=== PATIENT | male | born 1985 | race Hispanic/Latino ===

== ENCOUNTER 2017-09-19 08:36 | Outpatient (CLI) | payer BC ==
[2017-09-19 09:50] LABS: Hemoglobin 15.9 g/dL (14.0-18.0); Mean Corpuscular HGB CONC 34.6 g/dL (32.0-36.0); Mean Corpuscular Volume 95.3 fl (80.0-94.0); Mean Platelet Volume 7.9 fL (7.4-10.4); Platelet Count 241 thou/uL (130-400); RBC Distribution Width 11.4 % (11.5-14.5); Red Blood Cell (RBC) Count 4.83 mill/uL (4.70-6.10); White Blood Cell (WBC) Count 5.8 thou/uL (4.8-10.8)
[2017-09-19 09:53] LABS: INR-International Normal Ratio 1.1; PTT 34.2 SEC (22.9-36.1)
[2017-09-19 10:05] LABS: Anion Gap 11 mmol/L (10-20); BUN (Urea Nitrogen) 23 mg/dL (8.9-20.6); Calc. Creatinine Clearance 0 mL/min (70-130); Calcium 9.8 mg/dL (7.8-10.44); Carbon Dioxide 27 mmol/L (22-29); Chloride 105 mmol/L (98-107); Estimated GFR-MDRD Greater than 90; Glucose 68 mg/dL (70-105); Potassium 3.9 mmol/L (3.5-5.1); Sodium 139 mmol/L (136-145)
--- NOTE | 2017-09-20 06:32 | EKG ---
Test Reason : Blood Pressure : / mmHG Vent. Rate : 074 BPM Atrial Rate : 074 BPM P-R Int : 152 ms QRS Dur : 106 ms QT Int : 404 ms P-R-T Axes : 063 088 009 degrees QTc Int : 448 ms Normal sinus rhythm Right axis deviation Possible Inferior infarct , age undetermined Abnormal ECG No previous ECGs available Confirmed by CLARENCE VIZCARRA ([id number]) on 09/20/2017 6:32:09 AM Referred By: NOREEN Confirmed By:CLARENCE VIZCARRA
== END 2017-09-19 08:37 | disposition home or self-care (01) ==
LOC: LABBT 08:36
PROVIDERS: ATTEND Surgery
DX: Z01.810 Encounter for preprocedural cardiovascular examination (principal); Z01.812 Encounter for preprocedural laboratory examination; M51.16 Intervertebral disc disorders with radiculopathy, lumbar region
CPT/HCPCS: 80048; 85027; 85610; 85730; 93005; 93010

== ENCOUNTER 2017-09-23 09:46 | Day surgery (SDC) | payer BC ==
[2017-09-19 09:03] VITALS: BMI 28.7
[2017-09-23] MEDS ORDERED: Midazolam HCl 2 mg/2 ml Vial ONE ×2 (10:34→11:26)
[2017-09-23] MEDS ORDERED: HYDROmorphone 0.5 MG/0.5 ML SYRINGE ONE ×5 (10:34→16:37)
[2017-09-23] MEDS ORDERED: Fentanyl 100 MCG/2 ML VIAL ONE ×6 (10:34→16:18)
[2017-09-23] MEDS ORDERED: Sodium Chloride 0.9% 10 ML ONE (11:33)
[2017-09-23] MEDS ORDERED: Thrombin 5000 UNITS/5 ML VIAL ONE (11:34)
[2017-09-23] MEDS ORDERED: Bacitracin Zinc Ointment 30 gm TUBE ONE (11:34)
[2017-09-23] MEDS ORDERED: CEFAZOLIN/Water 2 GM/20 ML SYRINGE ONE (11:47)
[2017-09-23] MEDS ORDERED: Vecuronium 10 MG VIAL ONE ×2 (14:20→14:28)
[2017-09-23] MEDS ORDERED: Lidocaine 1% PF 5 ML VIAL ONE (14:20)
[2017-09-23] MEDS ORDERED: Propofol 200 MG/20 ML VIAL ONE (14:20)
[2017-09-23] MEDS ORDERED: Ondansetron HCl/PF 4 MG/2 ML Vial ONE (14:20)
[2017-09-23] MEDS ORDERED: ePHEDrine/0.9% NaCl/PF SYRINGE 50 mg/10 ml ONE (14:20)
[2017-09-23] MEDS ORDERED: Dexamethasone 20 MG/5 ML VIAL ONE (14:20)
[2017-09-23] MEDS ORDERED: Glycopyrrolate 0.2 MG/ML 5 ML SYRINGE ONE (14:20)
[2017-09-23] MEDS ORDERED: Promethazine HCl 25 MG/ML VIAL IM PRN (15:07)
[2017-09-23] MEDS ORDERED: Cyclobenzaprine 10 MG TAB PO PRN (15:07)
[2017-09-23] MEDS ORDERED: Ondansetron HCl/PF 4 MG/2 ML Vial IVP PRN ×2 (15:07→15:36)
[2017-09-23] MEDS ORDERED: Mag-Al 1200 mg/1200 mg/30 ML UDCUP PO PRN (15:07)
[2017-09-23] MEDS ORDERED: Milk Of Magnesia 30 ML UDCUP PO PRN (15:07)
[2017-09-23] MEDS ORDERED: Acetaminophen 325 MG TAB PO PRN (15:07)
[2017-09-23] MEDS ORDERED: Acetaminophen/Codeine 30-300mg Tablet PO PRN (15:07)
[2017-09-23] MEDS ORDERED: Fleet Enema 133 ML BOT PR PRN (15:07)
[2017-09-23] MEDS ORDERED: traMADol HCl 50 MG TAB PO PRN (15:07)
[2017-09-23] MEDS ORDERED: Bisacodyl 10 MG SUPP PR PRN (15:07)
[2017-09-23] MEDS ORDERED: ACETAMINOPHEN WITH CODEINE PO PRN (15:10)
[2017-09-23] MEDS ORDERED: Promethazine HCl 25 MG/ML VIAL IM/IV PRN (15:36)
[2017-09-23] MEDS ORDERED: HYDROmorphone 2 MG/ML VIAL SLOW IVP PRN (15:36)
[2017-09-23] MEDS: HYDROcodone/Acetaminophen 7.5/325 mg Tablet PO PRN ×2 (18:28→22:25)
[2017-09-23] MEDS: Sodium Chloride 0.9% 1,000 ML IV SCH (18:32)
[2017-09-23] MEDS: CEFAZOLIN/Water 2 GM/20 ML SYRINGE SLOW IVP SCH (21:15)
[2017-09-24] MEDS: Sodium Chloride 0.9% 1,000 ML IV SCH (02:41)
[2017-09-24] MEDS: CEFAZOLIN/Water 2 GM/20 ML SYRINGE SLOW IVP SCH (04:37)
[2017-09-24 08:12] VITALS: BP 135/66; TEMP 98
[2017-09-24] MEDS: HYDROcodone/Acetaminophen 7.5/325 mg Tablet PO PRN (10:18)
--- NOTE | 2017-09-24 10:50 | PRG ---
DATE OF SERVICE: 09/24/2017 Mr. Jauregui is postoperative day 1 from left L5-S1 hemilaminotomy, foraminotomy, and diskectomy. H is left leg pain has resolved. He has had some incisional pain as expected. He is mobilizing with e xcellent strength in his lower extremity myotomes. He is voiding on his own and tolerating oral diet . We went over intraoperative and postoperative issues including wound care and will arrange for dis missal today and follow up in my clinic.
--- NOTE | 2017-09-24 13:24 | OP ---
DATE OF PROCEDURE: 09/23/2017 OR: 12. WOUND TYPE: Type 1 wound. SURGEON: Hong De Jesus M.D. TRANSCRIPTION COORDINATOR: Jitendra Marcial PA-C. PREPROCEDURE DIAGNOSIS: Left S1 radiculopathy with left L5-S1 disk extrusion. POSTPROCEDURE DIAGNOSIS: Left S1 radiculopathy with left L5-S1 disk extrusion. PROCEDURES: 1. Left L5-S1 hemilaminotomy, foraminotomy and diskectomy. 2. Use of operative microscope for microdissection. DESCRIPTION OF PROCEDURE: After informed consent was obtained from the patient, the patient brought to OR 12. Proper patient pause and identification was carried out. He was placed under excellent ge neral endotracheal anesthesia and positioned prone on the operating table. All appropriate points we re padded. We identified the midline L5-S1 dorsal segments and a linear rafael was made in this region . This area was sterilely cleansed, prepared and draped and proper patient pause and identification was carried out. The wound was then opened with a combination of sharp, monopolar and blunt dissecti on and the left L5-S1 segment exposed. Localization film confirmed our area of interest. We then pe rformed a left L5-S1 hemilaminotomy and foraminotomy. The microscope was then brought in for microdi ssection. Working ventral to the left S1 nerve root and over the shoulder of the left S1 nerve root, multiple disk fragments were removed both from the disk space and from the caudal migration of the h erniated fragments. We were satisfied with our decompression. Copious irrigation occurred throughou t and hemostasis was maximized. There was no spinal fluid leak. The wound was then closed in anatom ic layers following the sprinkling of vancomycin powder. The patient then emerged from anesthesia.
[2017-09-24] MEDS ORDERED: FLU VACC QS2017-18 36 mo. & older 0.5 ML SYRINGE IM ONE (21:00)
== END 2017-09-24 10:44 | disposition home or self-care (01) ==
LOC: SDC 09:46 → EEVIPCON 11:30 → SURG B 15:07 → SDC 09-24 10:44
PROVIDERS: ATTEND Surgery
PROC: 0ST20ZZ Resection of Lumbar Vertebral Disc, Open Approach (ICD-10-PCS; principal; 2017-09-24)
PROC: 01NB0ZZ Release Lumbar Nerve, Open Approach (ICD-10-PCS; principal; 2017-09-24)
DX: M51.17 Intervertebral disc disorders with radiculopathy, lumbosacral region (principal); Z98.890 Other specified postprocedural states
CPT/HCPCS: 76001; 96374; A4216; J1100; J1170; J2001; J2250; J2270; J2405; J2704; J3010; J3370; J3490

== ENCOUNTER → 2019-11-12 | Outpatient (CLI) | payer BC ==
--- NOTE | 2019-11-12 16:02 | MRI ---
MRI LUMBAR SPINE: DATE: 11/12/2019. PROVIDED CLINICAL HISTORY: Left hip and leg pain. FINDINGS: No comparisons. Five lumbar vertebral bodies are assumed. There is grade I retrolisthesis of L5 on S1. Lumbar alignment appears otherwise normal. Vertebral body heights appear preserved. No focal c oncerning regional marrow signal abnormality is evident. The conus medullaris is normal in size and terminates at an appropriate level. The visualized extraspinal soft tissues appear unremarkable. At L1-2, there is no significant central canal or foraminal narrowing apparent. At L2-3, there is no significant central canal or foraminal narrowing apparent. At L3-4, there is no significant central canal or foraminal narrowing apparent. At L4-5, there is no significant central canal or foraminal narrowing apparent. At L5-S1, there is a broad-based disk bulge with accompanying osteophyte. This is more conspicuous i n the left subarticular, foraminal, and lateral regions and has the potential for contact of the vidal ersing left S1 nerve root. There is mild left foraminal narrowing. There is no significant right fo raminal narrowing. No significant central canal stenosis apparent. IMPRESSION: Degenerative disk changes at L5-S1 as described above. POS: MANOHAR
--- NOTE | 2019-11-15 16:00 | RAD ---
FOUR VIEWS OF THE LUMBOSACRAL SPINE: 11/15/19 COMPARISON: 09/12/17. HISTORY: Left leg cramps at night for six months. Lumbar spine surgery two years ago. FINDINGS: Four views of the lumbosacral spine shows normal height and alignment of the vertebral bodies without fracture or subluxation. Mild disc space narrowing is seen at L5-S1 with small surrounding osteophyt es. No other degenerative changes are seen. Alignment is unchanged with flexion and extension. IMPRESSION: Mild degenerative changes at L5-S1 with unchanged alignment with bending. POS: JT
== END | disposition home or self-care (01) ==
LOC: SCSMRI 14:32
PROVIDERS: ATTEND Surgery
DX: M51.16 Intervertebral disc disorders with radiculopathy, lumbar region (principal); M79.605 Pain in left leg; M51.17 Intervertebral disc disorders with radiculopathy, lumbosacral region
CPT/HCPCS: 72148

== ENCOUNTER 2020-04-15 13:35 | Outpatient (CLI) | payer BC ==
--- NOTE | 2020-04-15 15:34 | MRI ---
MRI OF THE LUMBAR SPINE WITH AND WITHOUT CONTRAST: 04/15/20 INDICATIONS: Low back pain. FINDINGS: Lumbar vertebrae maintain normal height and exhibit normal signal. Degenerative disc changes are note d at L5-S1. The other disc spaces are preserved. No significant disc bulge or disc protrusion at L1-2, L2-3 or L3-4 levels. There is mild facet arthro sis at these levels without central canal or foraminal stenosis. At L4-5, there is a small central protrusion indenting the anterior thecal sac. Mild to moderate face t and ligamentous hypertrophy. Mild central canal stenosis. At L5-S1, evidence of laminectomy change posteriorly on the left. Slight posterolisthesis with diffus e disc bulge. No significant central canal stenosis. There is mild left foraminal narrowing secondary to disc and facet hypertrophy. IMPRESSION: 1. Small central protrusion at L4-5 indents the anterior thecal sac. Mild central canal stenosis noted above. 2. Degenerative disc change at L5-S1 with posterior laminectomy change. No significant central c anal stenosis. Mild left foraminal encroachment. POS: AGW
== END 2020-04-15 13:36 | disposition home or self-care (01) ==
LOC: SCSMRI 13:35
PROVIDERS: ATTEND Surgery
DX: M51.16 Intervertebral disc disorders with radiculopathy, lumbar region (principal); M51.17 Intervertebral disc disorders with radiculopathy, lumbosacral region; M48.061 Spinal stenosis, lumbar region without neurogenic claudication; M48.07 Spinal stenosis, lumbosacral region; Z98.890 Other specified postprocedural states
CPT/HCPCS: 72158